=== PATIENT | female | born 1985 | race Caucasian/White ===

== ENCOUNTER 2016-06-27 10:05 | Emergency (ER) | payer OTHER ==
[2016-06-27] MEDS ORDERED: Ibuprofen TAB* 400 MG PO ONE (11:10)
[2016-06-27] MEDS ORDERED: cefTRIAXone VIAL(*) 1,000 MG VIAL IM ONE (11:28)
[2016-06-27] MEDS ORDERED: HYDROcodone/ACETAMIN 5-325 MG* 1 TAB PO ONE (11:29)
[2016-06-27] MEDS ORDERED: Lidocaine 1%* 5 ML VIAL ONE (11:33)
--- NOTE | 2016-06-27 11:50 | UC ---
Breast Complaint - HPI Summary HPI Summary: right breast pain x 4 days had bilateral nipple pierced 5 days ago no the right breast is very sore, white discharge, hard and tender, + fever, chills , body aches - History of Current Complaint Hx Obtained From: Patient Breast Chief Complaint: Pain, Drainage, Nipple - nipple pierced, Right, Inflammation Onset/Duration: Started Days Ago - 4, Still Present, Worse Since - today Timing: Constant Breast Pain Radiates To: Axilla - right, Neck - right Breast Pain Aggravating Factors: Pressure Breast Pain Alleviating Factors: Nothing Breast Associated Signs/Symptoms: Discharge, Fever, Redness, Warmth - Allergy/Home Medications Allergies/Adverse Reactions: Allergies Allergy/AdvReac Type Severity Reaction Status Date / Time Aspirin AdvReac Hives Verified 06/27/16 10:55 Home Medications: Home Medications Ibuprofen TAB* [Motrin TAB* 800 MG] 800 mg PO ONCE 06/27/16 [History Confirmed 06/27/16] PMH/Surg Hx/FS Hx/Imm Hx Previously Healthy: Yes - Surgical History Surgical History: Yes Surgery Procedure, Year, and Place: [facility] 2009 - Family History Known Family History: Negative: Diabetes - Social History Alcohol Use: Occasionally Substance Use Type: None Smoking Status (MU): Current Some Day Smoker Type: Cigarettes Have You Smoked in the Last Year: Yes Review of Systems Constitutional: Fever, Chills, Fatigue Skin: Negative Eyes: Negative ENT: Negative Respiratory: Negative Cardiovascular: Negative Gastrointestinal: Negative Genitourinary: Negative Motor: Negative Neurovascular: Negative Musculoskeletal: Negative Neurological: Negative Psychological: Negative All Other Systems Reviewed And Are Negative: Yes Physical Exam Triage Information Reviewed: Yes Appearance: Pain Distress Vital Signs: Initial Vital Signs Temp 102.4 F 06/27/16 10:49 Pulse 120 06/27/16 10:49 Resp 24 06/27/16 10:49 BP 115/68 06/27/16 10:49 Pulse Ox 99 06/27/16 10:49 Vital Signs Reviewed: Yes Eyes: Positive: Conjunctiva Clear ENT: Positive: Normal ENT inspection, Hearing grossly normal, Pharynx normal Neck exam: Normal Neck: Positive: Supple, Nontender, No Lymphadenopathy Respiratory: Positive: Chest non-tender, Lungs clear, Normal breath sounds, Other: - right breast : + erythem , white discharge, very tendern to touch, + warm to touch nipple piercing was removed using a forcept to untwist Cardiovascular: Positive: Tachycardia Abdominal Exam: Normal Abdomen Description: Positive: Soft Neurological Exam: Normal Neurological: Positive: Alert Skin Exam: Normal Breast Pain Course/Dx - Diagnoses Provider Diagnoses: Mastitis Discharge - Discharge Plan Condition: Stable Disposition: HOME Prescriptions: Cephalexin CAP* [Keflex CAP*] 500 mg PO QID #40 cap Hydrocodone-Acetaminophen [Hydrocodone/Acetaminophen 5-325 mg] 1 tab PO Q6H PRN #15 tab MDD 4 TABS PER DAY PRN Reason: Pain Patient Education Materials: Mastitis (ED) Referrals: Darlene Escobar MD [Primary Care Provider] - 3 Days
[2016-06-27 12:01] VITALS: BP 104/62
== END 2016-06-27 12:06 | disposition home or self-care (01) ==
LOC: UCCORT 10:05
DX: N61.0 Mastitis without abscess (principal); Z88.6 Allergy status to analgesic agent; Z72.0 Tobacco use; Z32.02 Encounter for pregnancy test, result negative
CPT/HCPCS: 81003; 84702; 96372; 99203; A9270-GY; G0463; J0696

== ENCOUNTER 2017-06-27 14:10 | Emergency (ER) | payer OTHER ==
[2017-06-27 14:30] VITALS: BP 122/79
--- NOTE | 2017-06-27 14:59 | UC ---
Throat Pain/Nasal Baisl HPI - HPI Summary HPI Summary: 32 yo WF c/o sore throat x 1 week, associated with f\c and B/L ear pains, one of her daughters at home is sick - History of Current Complaint Chief Complaint: UCRespiratory Stated Complaint: THROAT,FEVER Time Seen by Provider: 06/27/17 14:39 Hx Obtained From: Patient Hx Last Menstrual Period: MIRENA IUD Onset/Duration: Gradual Onset Severity: Severe Pain Intensity: 5 - Allergies/Home Medications Allergies/Adverse Reactions: Allergies Allergy/AdvReac Type Severity Reaction Status Date / Time aspirin Allergy Hives Verified 06/27/17 14:23 PMH/Surg Hx/FS Hx/Imm Hx Previously Healthy: Yes - Surgical History Surgical History: Yes Surgery Procedure, Year, and Place: d/c 2009 - Family History Known Family History: Negative: Diabetes - Social History Alcohol Use: Occasionally Substance Use Type: None Smoking Status (MU): Former Smoker Type: Cigarettes Have You Smoked in the Last Year: Yes When Did the Patient Quit Smoking/Using Tobacco: SUMMER 2016 Review of Systems Constitutional: Fever, Chills Skin: Negative Eyes: Negative ENT: Ear Ache Respiratory: Negative Cardiovascular: Negative Gastrointestinal: Negative Genitourinary: Negative Motor: Negative Neurovascular: Negative Musculoskeletal: Negative Neurological: Negative Psychological: Negative All Other Systems Reviewed And Are Negative: Yes Physical Exam Triage Information Reviewed: Yes Vital Signs: Initial Vital Signs Temp 36.9 C 06/27/17 14:24 Pulse 87 06/27/17 14:24 Resp 16 06/27/17 14:24 BP 122/79 06/27/17 14:24 Pulse Ox 99 06/27/17 14:24 Eye Exam: Normal ENT Exam: Normal ENT: Positive: Pharyngeal erythema, TM red - L>R. Negative: Tonsillar swelling , Tonsillar exudate Dental Exam: Normal Neck exam: Normal Neck: Positive: Tenderness @, Enlarged Nodes @ - anterior cevical and posterior auricular LN swelling and tenderness Respiratory Exam: Normal Cardiovascular Exam: Normal Abdominal Exam: Normal Musculoskeletal Exam: Normal Neurological Exam: Normal Psychological Exam: Normal Skin Exam: Normal Throat Pain/Nasal Course/Dx - Course Course Of Treatment: rapid strep neg- sent out for throat cx, will tx for B/L OM with Augmentin - Differential Dx/Diagnosis Provider Diagnoses: Pharyngitis. B/L OM Discharge - Sign-Out/Discharge Documenting (check all that apply): Discharge - Discharge Plan Condition: Stable Disposition: HOME Prescriptions: Amoxicillin/Clavulanate TAB* [Augmentin TAB 875*] 875 mg PO BID 7 Days #14 tab Patient Education Materials: Pharyngitis (ED), Ear Infection (ED) Referrals: Arlene Ca MD [Primary Care Provider] - Additional Instructions: take antibiotics as directed - Billing Disposition and Condition Condition: STABLE Disposition: HOME
== END 2017-06-27 15:19 | disposition home or self-care (01) ==
LOC: UCCORT 14:10
DX: J02.9 Acute pharyngitis, unspecified (principal); H66.93 Otitis media, unspecified, bilateral; Z87.891 Personal history of nicotine dependence; Z88.6 Allergy status to analgesic agent
CPT/HCPCS: 87070; 87651; 99212; G0463

== ENCOUNTER 2017-10-16 11:04 | Emergency (ER) | payer OTHER ==
[2017-10-16 11:53] VITALS: BP 111/76
--- NOTE | 2017-10-16 12:38 | UC ---
Skin Complaint HPI - HPI Summary HPI Summary: rash all over x 2 days started on her arms now moving on her legs, and rest of her body mildly itchy , no change is soap ,detergents, no new food or medications - History of Current Complaint Chief Complaint: UCSkin Time Seen by Provider: 10/16/17 11:40 Stated Complaint: SKIN COMPLAINT Hx Obtained From: Patient Hx Last Menstrual Period: 10/11/17 ?: No Onset/Duration: Gradual Onset, Lasting Days - 2, Still Present Timing: Constant Onset Severity: Moderate Current Severity: Moderate Pain Intensity: 0 Pain Scale Used: 0-10 Numeric Location: Diffuse Character: Pruritus, Redness Aggravating Factor(s): Nothing Alleviating Factor(s): Nothing Associated Signs & Symptoms: Positive: Rash. Negative: Nausea, Vomiting, Fever , Chills - Allergy/Home Medications Allergies/Adverse Reactions: Allergies Allergy/AdvReac Type Severity Reaction Status Date / Time aspirin Allergy Hives Verified 10/16/17 11:48 ciprofloxacin [From Cipro] Allergy Hives Verified 10/16/17 11:48 Review of Systems Constitutional: Negative Skin: Rash Eyes: Negative ENT: Negative Respiratory: Negative Cardiovascular: Negative Is Patient Immunocompromised?: No All Other Systems Reviewed And Are Negative: Yes PMH/Surg Hx/FS Hx/Imm Hx Previously Healthy: Yes - Surgical History Surgical History: Yes Surgery Procedure, Year, and Place: d/c 2009 - Family History Known Family History: Negative: Diabetes - Social History Alcohol Use: Occasionally Substance Use Type: None Smoking Status (MU): Former Smoker Type: Cigarettes Have You Smoked in the Last Year: Yes When Did the Patient Quit Smoking/Using Tobacco: SUMMER 2016 Physical Exam Triage Information Reviewed: Yes Appearance: Well-Appearing, No Pain Distress, Well-Nourished Vital Signs: Initial Vital Signs Temp 98.8 F 10/16/17 11:45 Pulse 73 10/16/17 11:45 Resp 14 10/16/17 11:45 BP 111/76 10/16/17 11:45 Pulse Ox 100 10/16/17 11:45 Vital Signs Reviewed: Yes Eye Exam: Normal Eyes: Positive: Conjunctiva Clear ENT: Positive: Normal ENT inspection, Hearing grossly normal, Pharynx normal Neck: Positive: Supple, Nontender, No Lymphadenopathy Respiratory: Positive: Chest non-tender, Lungs clear, Normal breath sounds Cardiovascular: Positive: RRR, No Murmur, Pulses Normal Skin: Positive: rashes - dry / scaly rash diffusely on her arms, legs, back , abd Course/Dx - Diagnoses Provider Diagnoses: pityriasis rosea Discharge - Sign-Out/Discharge Documenting (check all that apply): Patient Departure - Discharge Plan Condition: Stable Disposition: HOME Prescriptions: predniSONE [Prednisone 20 MG TAB] 20 mg PO BID #10 tablet Triamcinolone 0.1% CREAM (NF) [Kenalog 0.1% Cream (NF)] 1 applic .SEE ORDER BID #60 gm Patient Education Materials: Pityriasis rosea (ED) Forms: *Work Release Referrals: Arleen Ca MD [Primary Care Provider] - 2 Weeks - Billing Disposition and Condition Condition: STABLE Disposition: Home
== END 2017-10-16 12:20 | disposition home or self-care (01) ==
LOC: UCCORT 11:04
DX: L42 Pityriasis rosea (principal); Z88.1 Allergy status to other antibiotic agents; Z88.6 Allergy status to analgesic agent; Z87.891 Personal history of nicotine dependence
CPT/HCPCS: 99212; G0463

== ENCOUNTER 2017-10-22 15:02 | Emergency (ER) | payer OTHER ==
[2017-10-22 15:47] VITALS: BP 126/75
--- NOTE | 2017-10-22 16:09 | ED ---
GI/ HPI - HPI Summary HPI Summary: 32-year-old sexually active female presents with one-week history of abnormal sensation in her vagina. She does state there is some dysuria at the end of urination. She denies any urinary frequency but does feel as though she can't urinate fully. She has minimal low pelvic discomfort and no significant discharge. She feels as though there is a strange odor from her vagina. Not had STDs in the past and was recently tested for HIV. She did start penicillin yesterday and took 2 doses. She denies any fever, abdominal pain, back pain. She also has a widespread rash that she was treated here for. She received 5 days worth of steroid with no real benefit. The rash has been present for 2 weeks and was abrupt in onset. - History of Current Complaint Chief Complaint: UCGU Time Seen by Provider: 10/22/17 15:32 Stated Complaint: URINARY COMPLAINT Hx Obtained From: Patient Hx Last Menstrual Period: 10/08/17 Pain Intensity: 0 - Allergy/Home Medications Allergies/Adverse Reactions: Allergies Allergy/AdvReac Type Severity Reaction Status Date / Time aspirin Allergy Hives Verified 10/22/17 15:36 ciprofloxacin [From Cipro] Allergy Hives Verified 10/22/17 15:36 Home Medications: Home Medications Penicillin VK TAB* [Penicillin VK 250 mg Tab*] 1 tab DAILY 10/22/17 [History Confirmed 10/22/17] PMH/Surg Hx/FS Hx/Imm Hx Previously Healthy: Yes - Surgical History Surgery Procedure, Year, and Place: /c 2009 Infectious Disease History: No Infectious Disease History: Denies: Traveled Outside the [place] in Last 30 Days - Family History Known Family History: Negative: Diabetes - Social History Alcohol Use: Occasionally Substance Use Type: Reports: None Smoking Status (MU): Former Smoker Type: Cigarettes Have You Smoked in the Last Year: Yes Review of Systems Negative: Fever Negative: Sore Throat Negative: Cough Negative: Abdominal Pain, Vomiting, Nausea Positive: burning, other - pelvic odor. Negative: discharge, hematuria Positive: Rash All Other Systems Reviewed And Are Negative: Yes Physical Exam Triage Information Reviewed: Yes Vital Signs On Initial Exam: Initial Vitals Temp Pulse Resp BP Pulse Ox 97.8 F 71 16 126/75 100 10/22/17 15:36 10/22/17 15:36 10/22/17 15:36 10/22/17 15:36 10/22/17 15:36 Vital Signs Reviewed: Yes Appearance: Positive: Well-Appearing, No Pain Distress Skin: Positive: Warm, Dry, Scaly Skin/Lesions - In widespread or global distribution about 1 cm in size or less. ENT: Positive: Normal ENT inspection Neck: Positive: Supple, Nontender Respiratory/Lung Sounds: Positive: Clear to Auscultation, Breath Sounds Present Cardiovascular: Positive: RRR Abdomen Description: Positive: Nontender, No Organomegaly, Soft. Negative: Distended, Guarding Pelvic Exam: Positive: Other - No external lesions on the genitalia. There is a thick lubricant like substance in the vagina the patient confirms is MetroGel. There is scattered thick clumps of discharge. There is no discharge from the cervix. There is no cervical motion tenderness, adnexal tenderness or lesion. Neurological: Positive: Normal, Sensory/Motor Intact AVPU Assessment: Alert Diagnostics - Vital Signs Vital Signs Temp Pulse Resp BP Pulse Ox 10/22/17 15:36 97.8 F 71 16 126/75 100 - Laboratory Lab Results: Lab Results 10/22/17 10/22/17 Range/Units 15:50 15:52 POC Urine Color Yellow POC Urine Clarity Clear POC Urine pH 6.5 (5-9) POC Ur Specif [place] 1.015 (1.010-1.030) POC Urine Protein Negative (Negative) POC Ur Glucose (UA) Negative (Negative) POC Urine Ketones Negative (Negative) POC Urine Blood Negative (Negative) POC Urine Nitrite Negative (Negative) POC Urine Bilirubin Negative (Negative) POC Urine Urobilinogen 0.2 (Negative) POC U Leukocyte Esteras Negative (Negative) POC Ur Test Negative (Negative) Lab Statement: Any lab studies that have been ordered have been reviewed, and results considered in the medical decision making process. GIGU Course/Dx - Course Course Of Treatment: Urinalysis and urine are negative. The speculum exam possibly is limited by a copious amount of MetroGel in the vagina. Most likely this is candidal in nature given the findings. I will give her Diflucan. 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 There is a family history of psoriasis. She will need to be seen by dermatology for this. - Diagnoses Differential Diagnoses - Female: STD, Urinary Tract Infection, Vaginitis Provider Diagnoses: Guttate psoriasis, Vaginal odor, Vaginal candidiasis Discharge - Sign-Out/Discharge Documenting (check all that apply): Patient Departure - Discharge Plan Condition: Good Disposition: HOME Prescriptions: Fluconazole [Diflucan 150 MG (NF)] 150 mg PO ONCE #1 tab Patient Education Materials: Vaginitis (ED) Referrals: Tierney Guerrero NP [Primary Care Provider] - Maggy Abdalla [Medical Doctor] - Additional Instructions: Discontinue penicillin. Return with fever, joint aches, worse or other concerns. The rash will need to be seen by a cloth printing utility worker. Avoid sexual intercourse until STD testing returns. You can expect results in approximately 4 days. We will call you with positive result. - Billing Disposition and Condition Condition: GOOD Disposition: Home
== END 2017-10-22 16:24 | disposition home or self-care (01) ==
LOC: UCCORT 15:02
DX: L40.4 Guttate psoriasis (principal); B37.3 Candidiasis of vulva and vagina; N89.8 Other specified noninflammatory disorders of vagina; Z88.6 Allergy status to analgesic agent; Z88.1 Allergy status to other antibiotic agents; Z87.891 Personal history of nicotine dependence
CPT/HCPCS: 81003; 84702; 87480; 87491; 87510; 87591; 87661; 99212; G0463